=== PATIENT | male | born 1980 | race Hispanic/Latino ===

== ENCOUNTER 2018-11-14 18:24 | Emergency (ER) | payer SELFPAY ==
[2018-11-14] MEDS ORDERED: Lidocaine 1% 20 ML MDV ONE (18:51)
[2018-11-14] MEDS ORDERED: Cephalexin 500 MG CAP ONE (19:00)
[2018-11-14] MEDS ORDERED: Ketorolac Tromethamine 30 MG/ML VIAL ONE (19:00)
[2018-11-14] MEDS ORDERED: Adacel (T-DAP) 0.5 ML SYRINGE ONE (19:01)
--- NOTE | 2018-11-14 19:22 | RAD ---
INDEX FINGER RIGHT HAND: 11/14/18 Three views. HISTORY: injury FINDINGS/IMPRESSION: There has been amputation of the distal aspect of the index finger. There is a linear fracture throug h the tuft of the distal phalanx without significant displacement. POS: AGW
[2018-11-14] MEDS ORDERED: Bacitracin 1 PK ONE (19:38)
[2018-11-14] MEDS ORDERED: HYDROcodone/Acetaminophen 5/325 mg Tablet ONE (20:05)
== END 2018-11-14 20:13 | disposition home or self-care (01) ==
LOC: MADERS 18:24
DX: S62.630B Displaced fracture of distal phalanx of right index finger, initial encounter for open fracture (principal); S68.110A Complete traumatic metacarpophalangeal amputation of right index finger, initial encounter; Z23 Encounter for immunization; W31.2XXA Contact with powered woodworking and forming machines, initial encounter
CPT/HCPCS: 11044; 90471; 90715; 96372; J1885; J2001